=== PATIENT | male | born 1975 | race American Indian/Alaskan Native ===

== ENCOUNTER 2019-01-23 08:11 | Inpatient (IN) | payer SELFPAY ==
[2019-01-23] MEDS ORDERED: NORMODYNE IV ONE (08:47)
[2019-01-23 09:14] LABS: Basophils % (Auto) 0.3 % (0.0-1.8); Eosinophils # (Auto) 0.1 K/mm3 (0.0-0.4); Eosinophils % (Auto) 0.9 % (0.0-4.3); Hematocrit 44.8 % (35.5-45.6); Hemoglobin 15.5 gm/dl (11.8-15.2); Lymphocytes # (Auto) 1.8 K/mm3 (1.2-5.4); Lymphocytes % (Auto) 31.9 % (13.4-35.0); Mean Corpuscular HGB Conc 35 % (32-34); Mean Corpuscular Volume 86 fl (84-94); Monocytes # (Auto) 0.6 K/mm3 (0.0-0.8); Monocytes % (Auto) 10.6 % (0.0-7.3); Platelet Count 249 K/mm3 (140-440); Red Blood Count 5.19 M/mm3 (3.65-5.03); Red Cell Distribution Width 13.2 % (13.2-15.2)
--- NOTE | 2019-01-23 09:14 | Cat Scan Report ---
CT scan of head without IV contrast: History: Dizziness. Findings: Ventricles are normal in size and midline in location. No evidence of acute ischemia or hemorrhage. Focal area of low attenuation measuring 7 mm in diameter at viviana to the left of the midline. There is a large circumscribed area of low attenuation measuring 2 x 1.5 cm at left cerebellum. No extra-axial fluid collection. Normal sinuses. Impression: Chronic lacunar infarct viviana. Low attenuation left cerebellum may be chronic infarct or a mass. MRI scan recommended for further evaluation.
[2019-01-23 09:29] LABS: INR 0.97 (0.87-1.13)
--- NOTE | 2019-01-23 09:30 | Emergency Department Report ---
ED Dizziness HPI - General Chief Complaint: Dizziness Stated Complaint: DIZZY Time Seen by Provider: 01/23/19 08:36 Source: patient Mode of arrival: Ambulatory Limitations: No Limitations - History of Present Illness Initial Comments: Patient is a 44-year-old male with past medical history of noncompliant hypertension who is presenting with dizziness. Patient is having some mild difficulty pinpointing exactly when his symptoms started but between himself and his he states that he believes his symptoms started last week. 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 This was versed office just forgetfulness. Patient states that approximately 4 days ago while at work he did have some episodes of extreme dizziness where he had to go to his office to lie down. Patient states this occurred the next several days in a row. Patient states last night he felt a cold sensation in his nose shooting up into his head and his dizziness returned. Patient states that when he is walking and looking around he feels a spinning sensation that he also has been having sensation of his bodies leaning to the left. He denies any focal weakness of his arms and legs. Patient states he feels as though he is able to speak normally however again he did have some difficulty with some short-term memory. Patient denies any fevers chills. Patient is a social alcohol user and uses marijuana as well - Related Data Allergies Allergy/AdvReac Type Severity Reaction Status Date / Time No Known Allergies Allergy Verified 01/23/19 08:14 ED Review of Systems ROS: Stated complaint: DIZZY Other details as noted in HPI Comment: All other systems reviewed and negative ED Past Medical Hx - Past Medical History Previous Medical History?: No - Surgical History Past Surgical History?: No - Social History Smoking Status: Current Some Day Smoker Substance Use Type: Alcohol ED Physical Exam - General Limitations: No Limitations General appearance: alert, in no apparent distress - Head Head exam: Present: atraumatic, normocephalic - Eye Eye exam: Present: normal appearance, PERRL, EOMI - ENT ENT exam: Present: mucous membranes moist - Neck Neck exam: Present: normal inspection - Respiratory Respiratory exam: Present: normal lung sounds bilaterally. Absent: respiratory distress, wheezes, rales, rhonchi - Cardiovascular Cardiovascular Exam: Present: regular rate, normal rhythm. Absent: systolic murmur, diastolic murmur, rubs, gallop - GI/Abdominal GI/Abdominal exam: Present: soft, normal bowel sounds. Absent: distended, tenderness, guarding, rebound - Rectal Rectal exam: Present: deferred - Extremities Exam Extremities exam: Present: normal inspection - Back Exam Back exam: Present: normal inspection - Neurological Exam Neurological exam: Present: alert, oriented X3, CN II-XII intact. Absent: motor sensory deficit - Psychiatric Psychiatric exam: Present: normal affect, normal mood - Skin Skin exam: Present: warm, dry, intact, normal color. Absent: rash ED Course Vital Signs 01/23/19 01/23/19 01/23/19 08:14 08:28 09:20 Temperature 98.3 F Pulse Rate 83 78 Respiratory 16 20 Rate Blood Pressure 215/137 Blood Pressure 197/123 [Right] O2 Sat by Pulse 100 98 Oximetry 01/23/19 01/23/19 01/23/19 09:31 09:33 09:46 Temperature Pulse Rate 89 89 82 Respiratory 20 18 Rate Blood Pressure 171/118 Blood Pressure 171/118 192/130 [Right] O2 Sat by Pulse 98 97 Oximetry ED Medical Decision Making - Lab Data Result diagrams: 01/23/19 09:00 01/23/19 09:00 Lab Results 01/23/19 01/23/19 01/23/19 Range/Units 09:00 09:00 09:00 WBC 5.6 (4.5-11.0) K/mm3 RBC 5.19 H (3.65-5.03) M/mm3 Hgb 15.5 H (11.8-15.2) gm/dl Hct 44.8 (35.5-45.6) % MCV 86 (84-94) fl MCH 30 (28-32) pg MCHC 35 H (32-34) % RDW 13.2 (13.2-15.2) % Plt Count 249 (140-440) K/mm3 Lymph % (Auto) 31.9 (13.4-35.0) % [place] % (Auto) 10.6 H (0.0-7.3) % Eos % (Auto) 0.9 (0.0-4.3) % Baso % (Auto) 0.3 (0.0-1.8) % Lymph # 1.8 (1.2-5.4) K/mm3 [place] # 0.6 (0.0-0.8) K/mm3 Eos # 0.1 (0.0-0.4) K/mm3 Baso # 0.0 (0.0-0.1) K/mm3 Seg Neutrophils % 56.3 (40.0-70.0) % Seg Neutrophils # 3.1 (1.8-7.7) K/mm3 PT 13.5 (12.2-14.9) Sec. INR 0.97 (0.87-1.13) APTT 24.7 (24.2-36.6) Sec. Sodium (137-145) mmol/L Potassium (3.6-5.0) mmol/L Chloride (98-107) mmol/L Carbon Dioxide (22-30) mmol/L Anion Gap mmol/L BUN (9-20) mg/dL Creatinine (0.8-1.5) mg/dL Estimated GFR ml/min BUN/Creatinine Ratio % Glucose (75-100) mg/dL Calcium (8.4-10.2) mg/dL Troponin T < 0.010 (0.00-0.029) ng/mL Plasma/Serum Alcohol (0-0.07) % 01/23/19 01/23/19 Range/Units 09:00 09:00 WBC (4.5-11.0) K/mm3 RBC (3.65-5.03) M/mm3 Hgb (11.8-15.2) gm/dl Hct (35.5-45.6) % MCV (84-94) fl MCH (28-32) pg MCHC (32-34) % RDW (13.2-15.2) % Plt Count (140-440) K/mm3 Lymph % (Auto) (13.4-35.0) % [place] % (Auto) (0.0-7.3) % Eos % (Auto) (0.0-4.3) % Baso % (Auto) (0.0-1.8) % Lymph # (1.2-5.4) K/mm3 [place] # (0.0-0.8) K/mm3 Eos # (0.0-0.4) K/mm3 Baso # (0.0-0.1) K/mm3 Seg Neutrophils % (40.0-70.0) % Seg Neutrophils # (1.8-7.7) K/mm3 PT (12.2-14.9) Sec. INR (0.87-1.13) APTT (24.2-36.6) Sec. Sodium 138 (137-145) mmol/L Potassium 3.8 (3.6-5.0) mmol/L Chloride 100.5 (98-107) mmol/L Carbon Dioxide 28 (22-30) mmol/L Anion Gap 13 mmol/L BUN 10 (9-20) mg/dL Creatinine 0.9 (0.8-1.5) mg/dL Estimated GFR > 60 ml/min BUN/Creatinine Ratio 11 % Glucose 238 H (75-100) mg/dL Calcium 9.1 (8.4-10.2) mg/dL Troponin T (0.00-0.029) ng/mL Plasma/Serum Alcohol < 0.01 (0-0.07) % - Radiology Data [facility] [address] [place] [address] Cat Scan Report Signed Patient: MILKA OROZCO MR#: [id number] : 1975 Acct:[id number] Age/Sex: 44 / M ADM Date: 01/23/19 Loc: ED Attending Dr: Ordering Physician: JAVIER SYKES MD Date of Service: 01/23/19 Procedure(s): CT head/brain wo con Accession Number(s): [id number] cc: JAVIER SYKES MD CT scan of head without IV contrast: History: Dizziness. Findings: Ventricles are normal in size and midline in location. No evidence of acute ischemia or hemorrhage. Focal area of low attenuation measuring 7 mm in diameter at viviana to the left of the midline. There is a large circumscribed area of low attenuation measuring 2 x 1.5 cm at left cerebellum. No extra-axial fluid collection. Normal sinuses. Impression: Chronic lacunar infarct viviana. Low attenuation left cerebellum may be chronic infarct or a mass. MRI scan recommended for further evaluation. Transcribed By: PTP Dictated By: OMID ANAYA MD Electronically Authenticated By: OMID ANAYA MD Signed Date/Time: 01/23/1953 DD/ TD/TT: 01/23/19 0853 - Medical Decision Making Patient received labetalol for his hypertension which decreased blood pressure just slightly. Patient started with a DIDN'T diastolic blood pressure 137 decreased to 1:30. Systolic dropped by approximately 15 points. Patient started on a Cardene drip. Patient's CT is consistent with lacunar infarct that are chronic as well as a cerebellar lesion with some hypoattenuation's consistent also with chronic CVA. Patient is not a TPA candidate as time consideration of symptoms. Patient will be admitted to the hospitalists group for hypertensive emergency and hypertensive encephalopathy. Patient's admitted in serious condition. Critical Care Time: Yes (30) Critical care attestation.: If time is entered above; I have spent that time in minutes in the direct care of this critically ill patient, excluding procedure time. ED Disposition Clinical Impression: Hypertensive emergency, Hypertensive encephalopathy, CVA (cerebral vascular accident), Vertigo as late effect of stroke Disposition: DC-09 OP ADMIT IP TO THIS HOSP Is pt being admited?: Yes Condition: Serious Time of Disposition: 10:53 - Level of Consciousness 1a. Level of Consciousness: alert/keenly responsive - LOC Questions 1b. LOC Questions: answers both correctly - LOC Command 1c. LOC Commands: performs tasks correctly - Best Gaze 2. Best Gaze: normal - Visual 3. Visual: no visual loss - Facial Palsy 4. Facial Palsy: normal symmetrical movement - Motor Arm 5a. Motor Arm Left: no drift 5b. Motor Arm Right: no drift - Motor Leg 6a. Motor Leg Left: no drift 6b. Motor Leg Right: no drift - Limb Ataxia 7. Limb Ataxia: absent - Sensory 8. Sensory: normal - Best Language 9. Best Language: mild/moderate aphasia - Dysarthria 10. Dysarthria: normal - Extinction and Inattention 11. Extinction/Inattention: no abnormality - Scoring Total Score: 1 Stroke Severity: Minor Stroke
[2019-01-23 09:34] LABS: Partial Thromboplastin Time 24.7 Sec. (24.2-36.6)
[2019-01-23 09:37] LABS: BUN/Creatinine Ratio 11; Blood Urea Nitrogen 10 mg/dL (9-20); Calcium 9.1 mg/dL (8.4-10.2); Hemolysis Index 5
[2019-01-23] MEDS ORDERED: ASPIRIN PO ONE (09:57)
[2019-01-23] MEDS ORDERED: CARDENE 50 MG in NACL 0.9% 250ML 230 ML IV SCH (10:00)
--- NOTE | 2019-01-23 11:41 | Cat Scan Report ---
PROCEDURE: CT ANGIO HEAD TECHNIQUE: CTA of the head was performed after the administration of intravenous contrast. Coronal a nd sagittal reconstructions were included. Rotating MIPS were included. HISTORY: stroke sx COMPARISONS: None. FINDINGS: No evidence of intracranial mass, mass effect, midline shift or evidence of acute ischemic infarct. T here is a right maxillary sinus mucus retention cyst. The ventricles are nondilated. The mastoid air cells are clear. The calvarium is intact. No evidence of intracranial aneurysm, dissection or occlusion. Note that the right A1 segment is hypo plastic and the right anterior cerebral artery is fed by the left A1 segment and the anterior communi cating artery. The posterior communicating arteries are either very small or absent. No evidence of i ntracranial vessel stenosis. There is a tiny amount of calcified atherosclerotic plaque within the le ft cavernous internal carotid artery causing no significant vessel stenosis. IMPRESSION: 1. No acute intracranial abnormality. No intracranial aneurysm, vessel occlusion or significant steno sis. 2. Hypoplastic right A1 segment. This document is electronically signed by Chela Kennedy., January 23 2019 11:40:01 AM ET
[2019-01-23 12:29] LABS: Amphetamine Screen,Urine PRESUMPTIVE NEGATIVE; Benzodiazepines Screen,Urine PRESUMPTIVE NEGATIVE; Cocaine Screen,Urine PRESUMPTIVE NEGATIVE; Methadone Screen,Urine PRESUMPTIVE NEGATIVE; Opiate Screen,Urine PRESUMPTIVE NEGATIVE
--- NOTE | 2019-01-23 12:32 | Cat Scan Report ---
PROCEDURE: CT ANGIO NECK TECHNIQUE: CT angiography of the neck was performed. Axial images and coronal and sagittal reformatt ed and MIP reformatted images were obtained. HISTORY: stroke sx COMPARISON: None FINDINGS: Carotid arteries are patent without evidence for stenosis or dissection. Vertebral arteries are patent without stenosis or dissection. IMPRESSION: There is no significant abnormality identified. This document is electronically signed by Patricia Treviño MD., January 23 2019 12:30:36 PM ET
[2019-01-23 13:13] LABS: Cannabinoid Screen,Urine PRESUMPTIVE POSITIVE
[2019-01-23] MEDS ORDERED: TORADOL IV ONE (13:56)
[2019-01-23] MEDS ORDERED: ZOFRAN IV ONE (13:58)
[2019-01-23] MEDS ORDERED: TORADOL ONE (14:00)
[2019-01-23] MEDS ORDERED: ZOFRAN ONE (14:07)
--- NOTE | 2019-01-23 17:56 | History and Physical Report ---
History of Present Illness Date of examination: 01/23/19 Chief complaint: Very pleasant 44-year-old -[place] male patient with significant past medical history of hypertension noncompliant with medications presented to the emergency room with dizziness unsteady gait vague neuro symptoms unable to explain for the last 5 days Patient also reports that he has some forgetfulness, and leaning towards left side. Patient has similar episodes during work today and he rested for a while. Patient also complains of some vertigo or room spinning sensations and body leaning towards left. No speech problems no loss of consciousness, no history of seizures Patient denied history of CVA or TIA in the past Patient has history of hypertension for about 3-4 years , not on any medications I'm on my evaluation patient feels better Past History Past Medical History: hypertension Past Surgical History: denies: No surgical history Social history: lives with family, full code, other (marijuana ). denies: smoking, alcohol abuse, prescription drug abuse Family history: hypertension Medications and Allergies Allergies Allergy/AdvReac Type Severity Reaction Status Date / Time No Known Allergies Allergy Verified 01/23/19 08:14 Active Meds: Active Medications Nicardipine HCl 50 mg/ Sodium (Chloride) 250 mls @ 25 mls/hr IV TITR CUCO; Protocol Last Titration: 01/23/19 13:51 Dose: 0 mg/hr, 0 mls/hr Documented by: Review of Systems Constitutional: weakness, no weight loss, no weight gain Ears, nose, mouth and throat: no nasal congestion, no nasal discharge Cardiovascular: lightheadedness, no chest pain, no palpitations, no shortness of breath Respiratory: no cough, no shortness of breath Gastrointestinal: no abdominal pain, no nausea, no vomiting Genitourinary Male: no dysuria, no hematuria Musculoskeletal: no myalgias, no arthritis Integumentary: no rash, no lesions Neurological: no numbness, no tingling, no ataxia, no memory loss, no gait dysfunction Psychiatric: no anxiety, no depression Endocrine: no cold intolerance, no heat intolerance, no polydipsia, no polyuria Hematologic/Lymphatic: no easy bruising, no easy bleeding Allergic/Immunologic: no urticaria, no allergic rhinitis Exam - Constitutional Vitals: Temp Pulse Resp BP Pulse Ox 98.3 F 82 18 142/89 95 01/23/19 08:28 01/23/19 09:46 01/23/19 11:30 01/23/19 17:27 01/23/19 17:27 General appearance: Present: no acute distress, well-nourished - EENT Eyes: Present: PERRL, EOM intact - Neck Neck: Present: supple, normal ROM - Respiratory Respiratory effort: normal Respiratory: bilateral: diminished, negative: rales, rhonchi, wheezing - Cardiovascular Rhythm: regular Heart Sounds: Present: S1 & S2 - Extremities Extremities: no ischemia, No edema - Abdominal General gastrointestinal: Present: soft, non-tender, non-distended, normal bowel sounds - Integumentary Integumentary: Present: clear, warm - Musculoskeletal Musculoskeletal: strength equal bilaterally, other (unsteady gait) - Psychiatric Psychiatric: appropriate mood/affect, cooperative - Neurologic Neurologic: moves all extremities, other (unsteady gait) Results - Labs CBC & Chem 7: 01/23/19 09:00 01/23/19 09:00 Labs: Abnormal lab results 01/23/19 01/23/19 Range/Units 09:00 09:00 RBC 5.19 H (3.65-5.03) M/mm3 Hgb 15.5 H (11.8-15.2) gm/dl MCHC 35 H (32-34) % [place] % (Auto) 10.6 H (0.0-7.3) % Glucose 238 H (75-100) mg/dL Assessment and Plan --Hypertensive emergency; on Cardene drip Titrate systolic blood pressures to less than 160 Hydralazine, metoprolol, lisinopril, when necessary hydralazine --Hypertensive encephalopathy; Supportive care, Dizziness/unsteadiness gait Optimal control of blood pressures, fall precautions Neuro workup --Possible CVA/TIA; Not a candidate for TPA, aspirin, statin, Lipid profile MRI MRA, echocardiogram, carotid Doppler, neurology consult Physical therapy occupational therapy speech therapy CT angiogram of the head; no acute abnormality CTA neck; no acute abnormality CT head; chronic lacunar infarcts in [place] Low attenuation left possible and may be chronic infarct or mass Advised MRI --Medical noncompliance; counseling done patient advised to comply with medications, Follow-up visits --DVT prophylaxis; Lovenox Closely monitor the patient and adjust the management as needed Plan of care reviewed with the patient and his mother at the bedside
[2019-01-23] MEDS ORDERED: AMBIEN PO PRN (19:15)
[2019-01-23] MEDS ORDERED: ZOFRAN IV PRN (19:15)
[2019-01-23] MEDS ORDERED: COLACE PO PRN (19:15)
[2019-01-23] MEDS ORDERED: ALUM-MAG HYDROX-SIMETH 200-200-20MG/5ML PO PRN (21:46)
[2019-01-23] MEDS: APRESOLINE PO SCH (21:58)
[2019-01-23] MEDS: LOVENOX SUB-Q SCH (21:58)
[2019-01-23] MEDS: LOPRESSOR PO SCH (21:58)
[2019-01-23] MEDS: NORCO 5/325 PO PRN (22:59)
[2019-01-24 04:35] LABS: Alanine Aminotransferase 48 units/L (7-56); Albumin 1.8 g/dL (3.9-5); BUN/Creatinine Ratio 16; Blood Urea Nitrogen 14 mg/dL (9-20); Calcium 7.1 mg/dL (8.4-10.2); Chol/HDL Ratio 4.25 %; HDL Cholesterol 20 mg/dL (40-59); Hemolysis Index 1; LDL Cholesterol,Direct 45 mg/dL (50-130)
[2019-01-24 04:46] LABS: Hematocrit TNR % (35.5-45.6); Hemoglobin TNR gm/dl (11.8-15.2); Mean Corpuscular HGB Conc TNR % (32-34); Mean Corpuscular Volume TNR fl (84-94); Platelet Count TNR K/mm3 (140-440); Red Blood Count TNR M/mm3 (3.65-5.03); Red Cell Distribution Width TNR % (13.2-15.2)
[2019-01-24 04:47] LABS: Erythrocyte Sedimentation Rate TNR mm/Hr (0-20)
[2019-01-24] MEDS: APRESOLINE PO SCH ×4 (04:50→21:30)
[2019-01-24] MEDS: NORCO 5/325 PO PRN (04:50)
[2019-01-24 05:34] LABS: Basophils # (Auto) 0.1 K/mm3 (0.0-0.1); Basophils % (Auto) 1.5 % (0.0-1.8); Eosinophils # (Auto) 0.1 K/mm3 (0.0-0.4); Eosinophils % (Auto) 1.3 % (0.0-4.3); Hemoglobin 15.6 gm/dl (11.8-15.2); Lymphocytes # (Auto) 2.4 K/mm3 (1.2-5.4); Lymphocytes % (Auto) 38.7 % (13.4-35.0); Mean Corpuscular HGB Conc 35 % (32-34); Mean Corpuscular Volume 85 fl (84-94); Monocytes # (Auto) 0.7 K/mm3 (0.0-0.8); Monocytes % (Auto) 11.8 % (0.0-7.3); Platelet Count 244 K/mm3 (140-440); Red Blood Count 5.28 M/mm3 (3.65-5.03); Red Cell Distribution Width 13.1 % (13.2-15.2)
[2019-01-24] MEDS: APRESOLINE IV PRN ×2 (05:48→16:38)
[2019-01-24 06:14] LABS: Erythrocyte Sedimentation Rate 3 mm/Hr (0-20)
--- NOTE | 2019-01-24 07:16 | Event Note ---
Date: 01/24/19 CIDE MET Patient complained of face feeling flushed Also complaining of right leg pain which is chronic from his sciatica As reviewed, repeat labs, add magnesium Vitals: Blood pressure trended down, glucose normal, EKG normal
[2019-01-24] MEDS: TYLENOL PO PRN ×2 (07:21→18:54)
[2019-01-24 07:36] LABS: BUN/Creatinine Ratio 14; Blood Urea Nitrogen 13 mg/dL (9-20); Calcium 9.1 mg/dL (8.4-10.2); Hemolysis Index 7
--- NOTE | 2019-01-24 11:09 | Magnetic Resonance Report ---
MRA HEAD WITHOUT CONTRAST INDICATION: CVR/TIA. COMPARISON: Yesterday's CTA. FINDINGS: MRA of the head performed without intravenous contrast and demonstrates no evidence of flow-limiting stenosis, occlusion or vascular malformation. Please note that detection of aneurysms less than 5 mm is limited on this exam. Hypoplastic A1 segment again noted. Tortuous right vertebral artery crossing over to the left also again seen, joining with the right to form a patent basilar artery. CONCLUSION: Normal study of the [place] of [place] with few incidental findings, as above. Thank you for the opportunity to participate in this patient's care.
--- NOTE | 2019-01-24 11:10 | Magnetic Resonance Report ---
MRI BRAIN WITHOUT CONTRAST INDICATION: CVR/TIA COMPARISON: Yesterday's head CT. FINDINGS: Noncontrast multiplanar and multisequence MRI of the brain demonstrates left cerebellar acute infarcts, the largest confluent approximately 2.5 x 1.2 cm with numerous smaller peripheral/adjacent foci of acute restricted diffusion as on axial series 4, images 6-10. No other definite acute infarct, hemorrhage, mass effect or midline shift. Normal major intracranial vascular flow voids. Approximately 0.4 cm old lacunar infarct in the viviana incidentally seen on the left, axial image 10, series 6. Normal ventricles and sulci. Mild periventricular white matter FLAIR and T2 weighted hyperintensities. Preserved basilar cisterns with symmetric seventh and eighth nerve complexes. Normal imaged eye globes, allowing for the motion artifact. Mild right ethmoid sinus mucosal thickening anteriorly. Clear remainder imaged paranasal sinuses and mastoid air cells. Normal midline structures without evidence of Chiari malformation. CONCLUSION: Left cerebellar acute infarctions noted in this patient with microvascular changes and few other findings, as described. Thank you for the opportunity to participate in this patient's care.
--- NOTE | 2019-01-24 13:16 | Progress Note ---
Assessment and Plan Assessment and plan: --Acute cerebellar stroke; on MRI Fall precautions, patient has unsteady gait Aspirin, statin, physical therapy occupational therapy f/u Neurology evaluation and recommendations Discussed with [neurologist] recommend Follow-up CT today and tomorrow to rule out cerebral edema [ reports that cerebellar infarcts are prone to Developed cerebral edema] --Hypertensive emergency; s/p Cardene drip The patient is moderate control, permissive hypertension Hydralazine, metoprolol, lisinopril, when necessary hydralazine --Hypertensive encephalopathy; Supportive care,Optimal control of blood pressures, fall precautions, Neuro workup --Acute cerebral artery infarct; Not a candidate for TPA, as patient had symptoms more than 5 days Follow neuro w/u CT angiogram of the head; no acute abnormality CTA neck; no acute abnormality CT head; chronic lacunar infarcts in [place] Low attenuation left possible and may be chronic infarct or mass MRI/MRA/ carotid Doppler/echocardiogram/ --Medical noncompliance; counseling done patient advised to comply with medications, Follow-up visits --DVT prophylaxis; Lovenox Closely monitor the patient and adjust the management as needed Plan of care reviewed with the patient and his mother at the bedside History Interval history: Patient seen and examined medical records reviewed, patient's mother at the bedside Consistent with acute left cerebral large infarction Patient feels slightly better, complaints of dizziness and mild headache Blood pressures moderate control Alert awake oriented 3 Vital signs noted Hospitalist Physical - Constitutional Vitals: Temp Pulse Resp BP Pulse Ox 98.6 F 94 H 18 155/104 99 01/24/19 06:41 01/24/19 06:41 01/24/19 06:41 01/24/19 06:41 01/24/19 06:41 General appearance: Present: no acute distress, well-nourished - EENT Eyes: Present: PERRL, EOM intact - Neck Neck: Present: supple, normal ROM - Respiratory Respiratory effort: normal Respiratory: negative: rales, rhonchi, wheezing - Cardiovascular Rhythm: regular Heart Sounds: Present: S1 & S2 - Extremities Extremities: no ischemia, No edema - Abdominal General gastrointestinal: soft, non-tender, non-distended, normal bowel sounds - Integumentary Integumentary: Present: clear, warm - Psychiatric Psychiatric: appropriate mood/affect, cooperative - Neurologic Neurologic: moves all extremities Results - Labs CBC & Chem 7: 01/24/19 05:02 01/24/19 07:05 Labs: Laboratory Last Values WBC 6.1 K/mm3 (4.5-11.0) 01/24/19 05:02 RBC 5.28 M/mm3 (3.65-5.03) H 01/24/19 05:02 Hgb 15.6 gm/dl (11.8-15.2) H 01/24/19 05:02 Hct 45.0 % (35.5-45.6) 01/24/19 05:02 MCV 85 fl (84-94) 01/24/19 05:02 MCH 30 pg (28-32) 01/24/19 05:02 MCHC 35 % (32-34) H 01/24/19 05:02 RDW 13.1 % (13.2-15.2) L 01/24/19 05:02 Plt Count 244 K/mm3 (140-440) 01/24/19 05:02 Lymph % (Auto) 38.7 % (13.4-35.0) H 01/24/19 05:02 [place] % (Auto) 11.8 % (0.0-7.3) H 01/24/19 05:02 Eos % (Auto) 1.3 % (0.0-4.3) 01/24/19 05:02 Baso % (Auto) 1.5 % (0.0-1.8) 01/24/19 05:02 Lymph # 2.4 K/mm3 (1.2-5.4) 01/24/19 05:02 [place] # 0.7 K/mm3 (0.0-0.8) 01/24/19 05:02 Eos # 0.1 K/mm3 (0.0-0.4) 01/24/19 05:02 Baso # 0.1 K/mm3 (0.0-0.1) 01/24/19 05:02 Seg Neutrophils % 46.7 % (40.0-70.0) 01/24/19 05:02 Seg Neutrophils # 2.9 K/mm3 (1.8-7.7) 01/24/19 05:02 ESR 3 mm/Hr (0-20) 01/24/19 05:02 PT 13.5 Sec. (12.2-14.9) 01/23/19 09:00 INR 0.97 (0.87-1.13) 01/23/19 09:00 APTT 24.7 Sec. (24.2-36.6) 01/23/19 09:00 Sodium 139 mmol/L (137-145) D 01/24/19 07:05 Potassium 3.9 mmol/L (3.6-5.0) 01/24/19 07:05 Chloride 105.1 mmol/L (98-107) 01/24/19 07:05 Carbon Dioxide 22 mmol/L (22-30) 01/24/19 07:05 Anion Gap 16 mmol/L 01/24/19 07:05 BUN 13 mg/dL (9-20) 01/24/19 07:05 Creatinine 0.9 mg/dL (0.8-1.5) 01/24/19 07:05 Estimated GFR > 60 ml/min 01/24/19 07:05 BUN/Creatinine Ratio 14 % 01/24/19 07:05 Glucose 200 mg/dL (75-100) H 01/24/19 07:05 POC Glucose 164 (70-105) H 01/24/19 06:56 Hemoglobin A1c 8.5 % (4-6) H 01/24/19 05:02 Calcium 9.1 mg/dL (8.4-10.2) D 01/24/19 07:05 Magnesium 1.90 mg/dL (1.7-2.3) 01/24/19 07:05 Total Bilirubin 0.70 mg/dL (0.1-1.2) 01/24/19 04:08 AST 41 units/L (5-40) H 01/24/19 04:08 ALT 48 units/L (7-56) 01/24/19 04:08 Alkaline Phosphatase 76 units/L (35-129) 01/24/19 04:08 Troponin T < 0.010 ng/mL (0.00-0.029) 01/23/19 09:00 Total Protein 5.3 g/dL (6.3-8.2) L 01/24/19 04:08 Albumin 1.8 g/dL (3.9-5) L 01/24/19 04:08 Albumin/Globulin Ratio 0.5 % 01/24/19 04:08 Triglycerides 97 mg/dL (2-149) 01/24/19 04:08 Cholesterol 85 mg/dL (50-199) 01/24/19 04:08 LDL Cholesterol Direct 45 mg/dL (50-130) L 01/24/19 04:08 HDL Cholesterol 20 mg/dL (40-59) L 01/24/19 04:08 Cholesterol/HDL Ratio 4.25 % 01/24/19 04:08 Urine Opiates Screen Presumptive negative 01/23/19 Unknown Urine Methadone Screen Presumptive negative 01/23/19 Unknown Ur Barbiturates Screen Presumptive negative 01/23/19 Unknown Ur Phencyclidine Scrn Presumptive negative 01/23/19 Unknown Ur Amphetamines Screen Presumptive negative 01/23/19 Unknown U Benzodiazepines Scrn Presumptive negative 01/23/19 Unknown Urine Cocaine Screen Presumptive negative 01/23/19 Unknown U Marijuana (THC) Screen Presumptive positive 01/23/19 Unknown Drugs of Abuse Note Disclamer 01/23/19 Unknown Plasma/Serum Alcohol < 0.01 % (0-0.07) 01/23/19 09:00 Active Medications - Current Medications Current Medications: Generic Name Dose Route Start Last Admin Trade Name Freq PRN Reason Stop Dose Admin Acetaminophen 650 mg 01/23/19 22:13 01/24/19 07:21 Tylenol PO 650 mg Q6H PRN Administration Non Cardiac Pain or Temp>100.5 Acetaminophen/Hydrocodone Bitart 1 each 01/23/19 22:14 01/24/19 04:50 [place] 5/325 PO 1 each Q6H PRN Administration Pain, Moderate (4-6) Al Hydrox/Mg Hydrox/Simethicone 30 ml 01/23/19 21:46 01/23/19 21:56 Alum-Mag Hydrox-Simeth [phone]/5ml PO 30 ml Q4H PRN Administration Indigestion Atorvastatin Calcium 40 mg 01/23/19 22:00 01/23/19 21:58 Lipitor PO 40 mg QHS [facility]CO Administration Docusate Sodium 100 mg 01/23/19 19:15 Colace PO BID PRN Constipation Enoxaparin Sodium 40 mg 01/23/19 22:00 01/23/19 21:58 Lovenox SUB-Q 40 mg QDAY@2200 CUCO Administration Hydralazine HCl 25 mg 01/23/19 22:00 01/24/19 06:03 Apresoline PO Not Given Q8HR CUCO Hydralazine HCl 10 mg 01/23/19 19:04 01/24/19 05:48 Apresoline IV 10 mg Q4HR PRN Administration Hypertension Nicardipine HCl 50 mg/ Sodium 250 mls @ 25 mls/hr 01/23/19 10:00 01/23/19 19:01 Chloride IV 0 mg/hr TITR CUCO 0 mls/hr Titration Protocol 5 MG/HR Metoprolol Tartrate 25 mg 01/23/19 22:00 01/23/19 21:58 Lopressor PO 25 mg BID CUCO Administration Ondansetron HCl 4 mg 01/23/19 19:15 01/24/19 07:00 Zofran IV 4 mg Q4H PRN Administration Nausea And Vomiting Pantoprazole Sodium 40 mg 01/24/19 10:00 Protonix PO QDAY CUCO Zolpidem Tartrate 5 mg 01/23/19 19:15 Ambien PO QHS PRN Sleep
--- NOTE | 2019-01-24 13:23 | Consultation ---
History of Present Illness Consult date: 01/24/19 Requesting physician: AMNA SAL Reason for Consult: Cerebellar stroke History of present illness: 44 year old male with history of hypertension, not on meds, presents with history of vertigo and leaning to the left when walking. He also experienced nausea. These spells have been coming and going for 4 days. Finally came to ER 01/23/19 where BP was seen to be [address] and MRI confirm stroke in left cerebellar hemisphere. He denies weakness or numbness, no vision changes and able to swallow. No previous spells such as this. On no meds at home. This a.m. he awakened with headache. Dizziness does not occur if he is lying down. Past History Past Medical History: hypertension Past Surgical History: denies: No surgical history Social history: lives with family, full code, other (marijuana ). denies: smoki ng, alcohol abuse, prescription drug abuse Family history: hypertension Medications and Allergies Allergies Allergy/AdvReac Type Severity Reaction Status Date / Time No Known Allergies Allergy Verified 01/23/19 08:14 Home Medications Medication Instructions Recorded Confirmed Last Taken Type No Known Home Medications [No 01/23/19 01/23/19 Unknown History Reported Home Medications] Active Meds: Active Medications Acetaminophen (Tylenol) 650 mg PO Q6H PRN PRN Reason: Non Cardiac Pain or Temp>100.5 Last Admin: 01/24/19 07:21 Dose: 650 mg Documented by: Acetaminophen/Hydrocodone Bitart ([place] 5/325) 1 each PO Q6H PRN PRN Reason: Pain, Moderate (4-6) Last Admin: 01/24/19 04:50 Dose: 1 each Documented by: Al Hydrox/Mg Hydrox/Simethicone (Alum-Mag Hydrox-Simeth [phone]/5ml) 30 ml PO Q4H PRN PRN Reason: Indigestion Last Admin: 01/23/19 21:56 Dose: 30 ml Documented by: Atorvastatin Calcium (Lipitor) 40 mg PO QHS [facility] Last Admin: 01/23/19 21:58 Dose: 40 mg Documented by: Docusate Sodium (Colace) 100 mg PO BID PRN PRN Reason: Constipation Enoxaparin Sodium (Lovenox) 40 mg SUB-Q QDAY@2200 [facility] Last Admin: 01/23/19 21:58 Dose: 40 mg Documented by: Hydralazine HCl (Apresoline) 25 mg PO Q8HR [facility]CO Last Admin: 01/24/19 06:03 Dose: Not Given Documented by: Hydralazine HCl (Apresoline) 10 mg IV Q4HR PRN PRN Reason: Hypertension Last Admin: 01/24/19 05:48 Dose: 10 mg Documented by: Nicardipine HCl 50 mg/ Sodium (Chloride) 250 mls @ 25 mls/hr IV TITR CUCO; Protocol Last Titration: 01/23/19 19:01 Dose: 0 mg/hr, 0 mls/hr Documented by: Metoprolol Tartrate (Lopressor) 25 mg PO BID [facility] Last Admin: 01/23/19 21:58 Dose: 25 mg Documented by: Ondansetron HCl (Zofran) 4 mg IV Q4H PRN PRN Reason: Nausea And Vomiting Last Admin: 01/24/19 07:00 Dose: 4 mg Documented by: Pantoprazole Sodium (Protonix) 40 mg PO QDAY [facility] Zolpidem Tartrate (Ambien) 5 mg PO QHS PRN PRN Reason: Sleep Physical Examination - Vital Signs Vital Signs: Vital Signs Pulse Resp BP Pulse Ox 83 16 215/137 100 01/23/19 08:14 01/23/19 08:14 01/23/19 08:14 01/23/19 08:14 - Physical Exam Narrative exam: General - Resting in bed. Neurological exam - Speech fluent. Oriented plate cutter - Intact EOMs no nystagmus, Face symmetric, tongue midline. V-1 thru V-3 intact bilaterally. Hearing intact. Motor - 5/5 throughout. Reflexes - +2 on left, trace on right. Sensory - intact to touch and pin. Cerebellar - [place], FTN and FFM intact. HKS OK. a little wobbly on left. Results - Laboratory Findings CBC and BMP: 01/24/19 05:02 01/24/19 07:05 Abnormal Lab Findings: Abnormal Labs 01/23/19 01/23/19 01/24/19 09:00 09:00 04:08 RBC 5.19 H Hgb 15.5 H MCHC 35 H RDW Lymph % (Auto) [place] % (Auto) 10.6 H Sodium 132 L Carbon Dioxide 21 L D Glucose 238 H POC Glucose Hemoglobin A1c Calcium 7.1 L D AST 41 H Total Protein 5.3 L Albumin 1.8 L LDL Cholesterol Direct 45 L HDL Cholesterol 20 L 01/24/19 01/24/19 01/24/19 05:02 05:02 06:56 RBC 5.28 H Hgb 15.6 H MCHC 35 H RDW 13.1 L Lymph % (Auto) 38.7 H [place] % (Auto) 11.8 H Sodium Carbon Dioxide Glucose POC Glucose 164 H Hemoglobin A1c 8.5 H Calcium AST Total Protein Albumin LDL Cholesterol Direct HDL Cholesterol 01/24/19 07:05 RBC Hgb MCHC RDW Lymph % (Auto) [place] % (Auto) Sodium Carbon Dioxide Glucose 200 H POC Glucose Hemoglobin A1c Calcium AST Total Protein Albumin LDL Cholesterol Direct HDL Cholesterol Assessment and Plan 44 year old with uncontrolled hypertension presented with hx of dizzy spells, nausea and leaning/falling to the left over the past few days. MRI reveals left cerebellsr infarct, and chronic left lacunar infarct, viviana. He is now experiencing headache. Plan - Will send down for CT to evaluate for edema. If present, may need transfer to [facility] for neurosurgical observation.
[2019-01-24] MEDS: LOPRESSOR PO SCH ×2 (14:37→21:29)
[2019-01-24] MEDS: PROTONIX PO SCH (14:38)
[2019-01-24] MEDS: CLARITIN-D 24HR PO SCH (17:42)
[2019-01-24] MEDS ORDERED: APRESOLINE IV ONE (18:21)
[2019-01-24] MEDS: LOVENOX SUB-Q SCH (21:31)
[2019-01-25] MEDS: APRESOLINE PO SCH ×5 (05:10→22:56)
[2019-01-25] MEDS: TYLENOL PO PRN ×2 (05:12→13:40)
[2019-01-25] MEDS: LOPRESSOR PO SCH ×2 (10:35→22:57)
[2019-01-25] MEDS: PROTONIX PO SCH (10:35)
[2019-01-25] MEDS: CLARITIN-D 24HR PO SCH (10:44)
--- NOTE | 2019-01-25 11:00 | Cat Scan Report ---
EXAM: CT HEAD/BRAIN WO CON HISTORY: f/u Cerebellar CVA to r/o edema[rec by ] TECHNIQUE: Spiral axial CT images are obtained through the brain without the administration of intra venous contrast. COMPARISON: None available. FINDINGS: There is an approximately 3.3 cm x 2.9 cm focal lucency in the left inferior cerebellum in keeping wi th an acute or subacute infarction. There is severe atherosclerotic disease of the distal vertebral a rteries, the level of the skull base, marked by calcified mural plaques. The centrum semiovale, basal ganglia, cerebellum, and brainstem are otherwise grossly unremarkable fo r a noncontrast CT scan. There is no acute intracranial hemorrhage, discernible acute infarction, mass lesion, midline shift, or hydrocephalus seen. No extra-axial mass or abnormal fluid collection is seen. The calvarium is intact. The partially imaged paranasal sinuses, middle ear cavities, and mastoid ai r cells are clear. IMPRESSION: 1. Approximately 3.3 cm x 2.9 cm focal lucency in the left inferior cerebellum in keeping with an a cute or subacute infarction. 2. Severe atherosclerotic disease of the distal vertebral arteries, the level of the skull base, ma rked by calcified mural plaques. 3. No intracranial hemorrhage, mass lesions, midline shift, mass effect or hydrocephalus seen. This document is electronically signed by Lana Askew MD., January 25 2019 10:58:28 AM ET
--- NOTE | 2019-01-25 11:05 | Vascular Lab Report ---
EXAM: VL CAROTID DUPLEX BILAT HISTORY: CVA/TIA TECHNIQUE: The carotid arteries and vertebral arteries were interrogated with a high-frequency linear transducer, employing grayscale imaging, duplex Doppler and color flow Doppler imaging. COMPARISON: None available. FINDINGS: The common carotid arteries and carotid bulbs appear widely patent on grayscale imaging. There is mil d atherosclerotic mural plaque formation in the carotid bulbs, without significant luminal encroachme nt seen. Carotid velocities are as follows: RIGHT LEFT Distal CCA: 86 cm/s 84 cm/s Proximal ICA: 66 cm/s 71 cm/s ICA/CCA ratio: 0.77 0.85 The above findings constitute less than 50%; no hemodynamically significant ICA origin stenosis. There is no hemodynamically significant ECA stenosis. Both vertebral arteries are patent and demonstrate antegrade blood flow and normal Doppler waveforms. IMPRESSION: 1. Mild atherosclerotic plaque seen in the carotid bifurcations, without significant luminal encroac hment. 2. No hemodynamically significant ICA or ECA stenosis. 3. Patent vertebral arteries with antegrade blood flow. This document is electronically signed by Lana Askew MD., January 25 2019 11:03:55 AM ET
--- NOTE | 2019-01-25 12:56 | Progress Note ---
Assessment and Plan Assessment and plan: --Hypertensive emergency; s/p Cardene drip The patient is moderate control, permissive hypertension Hydralazine, metoprolol, lisinopril, when necessary hydralazine --Acute cerebellar stroke; on MRI Fall precautions, patient has unsteady gait Aspirin, statin, physical therapy occupational therapy f/u Neurology evaluation and recommendations Discussed with [neurologist] recommend Follow-up CT today and tomorrow to rule out cerebral edema [ reports that cerebellar infarcts are prone to Developed cerebral edema] --Hypertensive encephalopathy; Supportive care,Optimal control of blood pressures, fall precautions, Neuro workup --Acute cerebral artery infarct; Not a candidate for TPA, as patient had symptoms more than 5 days Follow neuro w/u CT angiogram of the head; no acute abnormality CTA neck; no acute abnormality CT head; chronic lacunar infarcts in [place] Low attenuation left possible and may be chronic infarct or mass MRI; left cerebellar acute infarctions noted in this patient with microvascular changes and few other findings as mentioned in the detailed report MRA;MRA; normal study of [place] with few incidental findings mentioned in the detailed report Echocardiogram; ejection fraction 35-40%, No shunt, impaired diastolic filling Carotid Doppler; no hemodynamically significant stenosis mild atherosclerotic plaque in the cardiac bifurcations Follow-up CT head; ; Approximately 3.3 cm 2.9 cm focal lucency in the left inferior cerebellum keeping with an acute or subacute infarction Severe atherosclerotic disease distal vertebral arteries level of skull base, marked calcified mural plaques No intracranial hemorrhage mass lesion midline shift mass effect on hydrocortisone as well as seen -Hyperglycemia; patient denies history of diabetes mellitus, HbA1c > 8 Accu-Chek sliding scale coverage and ADA diet, start oral hypoglycemics/insulin as needed Diabetic Education and nutrition consult, --Severe malnutrition /Hypoalbuminemia ; nutrition supplements, nutrition consult --Medical noncompliance; counseling done patient advised to comply with medications, Follow-up visits --DVT prophylaxis; Lovenox Closely monitor the patient and adjust the management as needed Plan of care reviewed with the patient and his mother at the bedside Also discussed with his nurse History Interval history: Patient seen and examined medical records reviewed Patient feels slightly better no new complaints Alert awake oriented 3, mild dizziness Blood pressures moderate control Vital signs noted Hospitalist Physical - Constitutional Vitals: Temp Pulse Resp BP Pulse Ox 98.3 F 83 20 162/102 96 01/25/19 09:07 01/25/19 10:50 01/25/19 09:07 01/25/19 10:50 01/25/19 09:07 General appearance: Present: no acute distress, well-nourished - EENT Eyes: Present: PERRL, EOM intact - Neck Neck: Present: supple, normal ROM - Respiratory Respiratory effort: normal Respiratory: bilateral: diminished, negative: rales, rhonchi, wheezing - Cardiovascular Rhythm: regular Heart Sounds: Present: S1 & S2 - Extremities Extremities: no ischemia, No edema - Abdominal General gastrointestinal: soft, non-tender, non-distended, normal bowel sounds - Integumentary Integumentary: Present: clear, warm - Psychiatric Psychiatric: appropriate mood/affect, cooperative - Neurologic Neurologic: moves all extremities (unsteady gait) Results - Labs CBC & Chem 7: 01/24/19 05:02 01/24/19 07:05 Labs: Laboratory Last Values WBC 6.1 K/mm3 (4.5-11.0) 01/24/19 05:02 RBC 5.28 M/mm3 (3.65-5.03) H 01/24/19 05:02 Hgb 15.6 gm/dl (11.8-15.2) H 01/24/19 05:02 Hct 45.0 % (35.5-45.6) 01/24/19 05:02 MCV 85 fl (84-94) 01/24/19 05:02 MCH 30 pg (28-32) 01/24/19 05:02 MCHC 35 % (32-34) H 01/24/19 05:02 RDW 13.1 % (13.2-15.2) L 01/24/19 05:02 Plt Count 244 K/mm3 (140-440) 01/24/19 05:02 Lymph % (Auto) 38.7 % (13.4-35.0) H 01/24/19 05:02 [place] % (Auto) 11.8 % (0.0-7.3) H 01/24/19 05:02 Eos % (Auto) 1.3 % (0.0-4.3) 01/24/19 05:02 Baso % (Auto) 1.5 % (0.0-1.8) 01/24/19 05:02 Lymph # 2.4 K/mm3 (1.2-5.4) 01/24/19 05:02 [place] # 0.7 K/mm3 (0.0-0.8) 01/24/19 05:02 Eos # 0.1 K/mm3 (0.0-0.4) 01/24/19 05:02 Baso # 0.1 K/mm3 (0.0-0.1) 01/24/19 05:02 Seg Neutrophils % 46.7 % (40.0-70.0) 01/24/19 05:02 Seg Neutrophils # 2.9 K/mm3 (1.8-7.7) 01/24/19 05:02 ESR 3 mm/Hr (0-20) 01/24/19 05:02 PT 13.5 Sec. (12.2-14.9) 01/23/19 09:00 INR 0.97 (0.87-1.13) 01/23/19 09:00 APTT 24.7 Sec. (24.2-36.6) 01/23/19 09:00 Sodium 139 mmol/L (137-145) D 01/24/19 07:05 Potassium 3.9 mmol/L (3.6-5.0) 01/24/19 07:05 Chloride 105.1 mmol/L (98-107) 01/24/19 07:05 Carbon Dioxide 22 mmol/L (22-30) 01/24/19 07:05 Anion Gap 16 mmol/L 01/24/19 07:05 BUN 13 mg/dL (9-20) 01/24/19 07:05 Creatinine 0.9 mg/dL (0.8-1.5) 01/24/19 07:05 Estimated GFR > 60 ml/min 01/24/19 07:05 BUN/Creatinine Ratio 14 % 01/24/19 07:05 Glucose 200 mg/dL (75-100) H 01/24/19 07:05 POC Glucose 167 (70-105) H 01/25/19 11:43 Hemoglobin A1c 8.5 % (4-6) H 01/24/19 05:02 Calcium 9.1 mg/dL (8.4-10.2) D 01/24/19 07:05 Magnesium 1.90 mg/dL (1.7-2.3) 01/24/19 07:05 Total Bilirubin 0.70 mg/dL (0.1-1.2) 01/24/19 04:08 AST 41 units/L (5-40) H 01/24/19 04:08 ALT 48 units/L (7-56) 01/24/19 04:08 Alkaline Phosphatase 76 units/L (35-129) 01/24/19 04:08 Troponin T < 0.010 ng/mL (0.00-0.029) 01/23/19 09:00 Total Protein 5.3 g/dL (6.3-8.2) L 01/24/19 04:08 Albumin 1.8 g/dL (3.9-5) L 01/24/19 04:08 Albumin/Globulin Ratio 0.5 % 01/24/19 04:08 Triglycerides 97 mg/dL (2-149) 01/24/19 04:08 Cholesterol 85 mg/dL (50-199) 01/24/19 04:08 LDL Cholesterol Direct 45 mg/dL (50-130) L 01/24/19 04:08 HDL Cholesterol 20 mg/dL (40-59) L 01/24/19 04:08 Cholesterol/HDL Ratio 4.25 % 01/24/19 04:08 Urine Opiates Screen Presumptive negative 01/23/19 Unknown Urine Methadone Screen Presumptive negative 01/23/19 Unknown Ur Barbiturates Screen Presumptive negative 01/23/19 Unknown Ur Phencyclidine Scrn Presumptive negative 01/23/19 Unknown Ur Amphetamines Screen Presumptive negative 01/23/19 Unknown U Benzodiazepines Scrn Presumptive negative 01/23/19 Unknown Urine Cocaine Screen Presumptive negative 01/23/19 Unknown U Marijuana (THC) Screen Presumptive positive 01/23/19 Unknown Drugs of Abuse Note Disclamer 01/23/19 Unknown Plasma/Serum Alcohol < 0.01 % (0-0.07) 01/23/19 09:00 Active Medications - Current Medications Current Medications: Generic Name Dose Route Start Last Admin Trade Name Freq PRN Reason Stop Dose Admin Acetaminophen 650 mg 01/23/19 22:13 01/25/19 05:12 Tylenol PO 650 mg Q6H PRN Administration Non Cardiac Pain or Temp>100.5 Acetaminophen/Hydrocodone Bitart 1 each 01/23/19 22:14 01/24/19 04:50 [place] 5/325 PO 1 each Q6H PRN Administration Pain, Moderate (4-6) Al Hydrox/Mg Hydrox/Simethicone 30 ml 01/23/19 21:46 01/23/19 21:56 Alum-Mag Hydrox-Simeth [id number]/5ml PO 30 ml Q4H PRN Administration Indigestion Atorvastatin Calcium 40 mg 01/23/19 22:00 01/24/19 21:30 Lipitor PO 40 mg QHS [facility] Administration Docusate Sodium 100 mg 01/23/19 19:15 Colace PO BID PRN Constipation Enoxaparin Sodium 40 mg 01/23/19 22:00 01/24/19 21:31 Lovenox SUB-Q 40 mg QDAY@2200 [facility] Administration Hydralazine HCl 10 mg 01/23/19 19:04 01/24/19 16:38 Apresoline IV 10 mg Q4HR PRN Administration Hypertension Hydralazine HCl 50 mg 01/24/19 18:25 01/25/19 05:10 Apresoline PO 50 mg Q8HR [facility] Administration Nicardipine HCl 50 mg/ Sodium 250 mls @ 25 mls/hr 01/23/19 10:00 01/23/19 19:01 Chloride IV 0 mg/hr TITR [facility] 0 mls/hr Titration Protocol 5 MG/HR Loratadine/Pseudoephedrine Sulfate 1 each 01/24/19 15:00 01/24/19 17:42 Claritin-D 24hr PO 1 each Q24HR [facility] Administration Metoprolol Tartrate 25 mg 01/23/19 22:00 01/25/19 10:35 Lopressor PO 25 mg BID [facility] Administration Nicardipine HCl 30 mg 01/25/19 14:00 Cardene PO Q8HR [facility] Ondansetron HCl 4 mg 01/23/19 19:15 01/24/19 07:00 Zofran IV 4 mg Q4H PRN Administration Nausea And Vomiting Pantoprazole Sodium 40 mg 01/24/19 10:00 01/25/19 10:35 Protonix PO 40 mg QDAY [facility] Administration Zolpidem Tartrate 5 mg 01/23/19 19:15 Ambien PO QHS PRN Sleep
[2019-01-25] MEDS: CARDENE PO SCH ×2 (15:34→22:57)
[2019-01-25] MEDS: APRESOLINE IV PRN (16:17)
[2019-01-25] MEDS ORDERED: XANAX PO PRN (17:13)
--- NOTE | 2019-01-25 17:22 | Event Note ---
Date: 01/25/19 Patient's blood pressures are uncontrolled Plan increase hydralazine to 75 mg 3 times a day, add clonidine When necessary medications, closely monitor If no improvement, consider Cardene drip Plan of care is reviewed with the nurse
[2019-01-25] MEDS: CATAPRES PO SCH ×2 (17:43→22:50)
[2019-01-25] MEDS: XANAX PO ONE ×2 (18:28→18:41)
[2019-01-25] MEDS: LOVENOX SUB-Q SCH (22:56)
[2019-01-26] MEDS: APRESOLINE PO SCH ×3 (05:30→21:21)
[2019-01-26] MEDS: CARDENE PO SCH ×3 (05:30→21:24)
[2019-01-26] MEDS: CATAPRES PO SCH ×3 (05:30→21:31)
[2019-01-26] MEDS: TYLENOL PO PRN (05:30)
--- NOTE | 2019-01-26 08:46 | Progress Note ---
Subjective Date of service: 01/26/19 Interval history: spoke to Sylvia Pinto last evening and presently BP is really under good control and glucoses are acceptable exam shows he is fully alert and moves all limbs well not dizzy and not having hiccups do not believe he is unstable and the CT of brain shows no deterioration ie severe edema or evidence of bleeding since this is [place] distribution infarct not likely to cause malignant brain edema... suspect some of his feeling of loss of energy is from aBP pill combo once BP stable I would cut back slightly on some of BP meds... explained evaluation to patient he is neuro stable did review all imaging studies and I will follow up Thanks Objective - Vital Sign Vital Signs - 12hr 01/25/19 01/26/19 01/26/19 23:51 04:00 04:11 Temperature 98.0 F 97.0 F L Pulse Rate 94 H 81 Respiratory 18 18 Rate Blood Pressure 171/99 146/94 O2 Sat by Pulse 96 Oximetry - Laboratory Findings CBC and BMP: 01/24/19 05:02 01/24/19 07:05 Abnormal Lab Findings: Abnormal Labs 01/23/19 01/23/19 01/24/19 09:00 09:00 04:08 RBC 5.19 H Hgb 15.5 H MCHC 35 H RDW Lymph % (Auto) Rich % (Auto) 10.6 H Sodium 132 L Carbon Dioxide 21 L D Glucose 238 H POC Glucose Hemoglobin A1c Calcium 7.1 L D AST 41 H Total Protein 5.3 L Albumin 1.8 L LDL Cholesterol Direct 45 L HDL Cholesterol 20 L 01/24/19 01/24/19 01/24/19 05:02 05:02 06:56 RBC 5.28 H Hgb 15.6 H MCHC 35 H RDW 13.1 L Lymph % (Auto) 38.7 H Rich % (Auto) 11.8 H Sodium Carbon Dioxide Glucose POC Glucose 164 H Hemoglobin A1c 8.5 H Calcium AST Total Protein Albumin LDL Cholesterol Direct HDL Cholesterol 01/24/19 01/24/19 01/24/19 07:05 18:22 21:39 RBC Hgb MCHC RDW Lymph % (Auto) Rich % (Auto) Sodium Carbon Dioxide Glucose 200 H POC Glucose 134 H 151 H Hemoglobin A1c Calcium AST Total Protein Albumin LDL Cholesterol Direct HDL Cholesterol 01/25/19 01/25/19 01/25/19 09:14 11:43 16:59 RBC Hgb MCHC RDW Lymph % (Auto) Rich % (Auto) Sodium Carbon Dioxide Glucose POC Glucose 193 H 167 H 183 H Hemoglobin A1c Calcium AST Total Protein Albumin LDL Cholesterol Direct HDL Cholesterol 01/25/19 22:42 RBC Hgb MCHC RDW Lymph % (Auto) Rich % (Auto) Sodium Carbon Dioxide Glucose POC Glucose 150 H Hemoglobin A1c Calcium AST Total Protein Albumin LDL Cholesterol Direct HDL Cholesterol
[2019-01-26] MEDS: PROTONIX PO SCH (09:50)
[2019-01-26] MEDS: LOPRESSOR PO SCH ×2 (09:50→21:19)
[2019-01-26] MEDS: CLARITIN-D 24HR PO SCH (09:51)
--- NOTE | 2019-01-26 11:29 | Progress Note ---
Assessment and Plan Assessment and plan: --Hypertensive emergency; moderate control s/p Cardene drip, multiple antihypertensives, when necessary hydralazine Hydralazine, metoprolol, lisinopril, nicardipine, clonidine --Acute cerebellar stroke; on MRI Aspirin, statin, physical therapy occupational therapy Neurology following, [neurologist] recommend Follow-up CT today no cerebral edema Repeat CT head if new symptoms are noted --Hypertensive encephalopathy; Supportive care,Optimal control of blood pressures, fall precautions, --Acute cerebral artery infarct; Not a candidate for TPA, as patient had symptoms more than 5 days Follow neuro w/u CT angiogram of the head; no acute abnormality CTA neck; no acute abnormality CT head; chronic lacunar infarcts in [place] Low attenuation left possible and may be chronic infarct or mass MRI; left cerebellar acute infarctions noted in this patient with microvascular changes and few other findings as mentioned in the detailed report MRA;MRA; normal study of [place] with few incidental findings mentioned in the detailed report Echocardiogram; ejection fraction 35-40%, No shunt, impaired diastolic filling Carotid Doppler; no hemodynamically significant stenosis mild atherosclerotic plaque in the cardiac bifurcations Follow-up CT head; ; Approximately 3.3 cm 2.9 cm focal lucency in the left inferior cerebellum keeping with an acute or subacute infarction Severe atherosclerotic disease distal vertebral arteries level of skull base, marked calcified mural plaques No intracranial hemorrhage mass lesion midline shift mass effect on hydrocortisone as well as seen -Hyperglycemia; patient denies history of diabetes mellitus, HbA1c > 8 Accu-Chek sliding scale coverage and ADA diet, start oral hypoglycemics/insulin as needed Diabetic Education and nutrition consult, --Severe malnutrition /Hypoalbuminemia ; nutrition supplements, nutrition consult --Medical noncompliance; counseling done patient advised to comply with medications, Follow-up visits --DVT prophylaxis; Lovenox Follow physical therapy recommendations Possible discharge in 1-2 days if stable Home with home health versus rehabilitation History Interval history: Patient seen and evaluated medical records reviewed Patient feels better complaints of generalized weakness and dizziness Blood pressures are reasonable levels, on multiple antihypertensives Awake oriented 3 not in acute distress Vital signs noted Hospitalist Physical - Constitutional Vitals: Temp Pulse Resp BP Pulse Ox 97.0 F L 85 18 139/75 96 01/26/19 04:11 01/26/19 09:50 01/26/19 04:11 01/26/19 09:50 01/25/19 23:51 General appearance: Present: no acute distress, well-nourished - EENT Eyes: Present: PERRL, EOM intact - Neck Neck: Present: supple, normal ROM - Respiratory Respiratory effort: normal Respiratory: bilateral: diminished, negative: rales, rhonchi, wheezing - Cardiovascular Rhythm: regular Heart Sounds: Present: S1 & S2 - Extremities Extremities: no ischemia, pulses intact, No edema - Abdominal General gastrointestinal: soft, non-tender, non-distended, normal bowel sounds - Integumentary Integumentary: Present: clear, warm - Psychiatric Psychiatric: appropriate mood/affect, cooperative - Neurologic Neurologic: CNII-XII intact, moves all extremities Results - Labs CBC & Chem 7: 01/24/19 05:02 01/24/19 07:05 Labs: Laboratory Last Values WBC 6.1 K/mm3 (4.5-11.0) 01/24/19 05:02 RBC 5.28 M/mm3 (3.65-5.03) H 01/24/19 05:02 Hgb 15.6 gm/dl (11.8-15.2) H 01/24/19 05:02 Hct 45.0 % (35.5-45.6) 01/24/19 05:02 MCV 85 fl (84-94) 01/24/19 05:02 MCH 30 pg (28-32) 01/24/19 05:02 MCHC 35 % (32-34) H 01/24/19 05:02 RDW 13.1 % (13.2-15.2) L 01/24/19 05:02 Plt Count 244 K/mm3 (140-440) 01/24/19 05:02 Lymph % (Auto) 38.7 % (13.4-35.0) H 01/24/19 05:02 Cherry % (Auto) 11.8 % (0.0-7.3) H 01/24/19 05:02 Eos % (Auto) 1.3 % (0.0-4.3) 01/24/19 05:02 Baso % (Auto) 1.5 % (0.0-1.8) 01/24/19 05:02 Lymph # 2.4 K/mm3 (1.2-5.4) 01/24/19 05:02 Cherry # 0.7 K/mm3 (0.0-0.8) 01/24/19 05:02 Eos # 0.1 K/mm3 (0.0-0.4) 01/24/19 05:02 Baso # 0.1 K/mm3 (0.0-0.1) 01/24/19 05:02 Seg Neutrophils % 46.7 % (40.0-70.0) 01/24/19 05:02 Seg Neutrophils # 2.9 K/mm3 (1.8-7.7) 01/24/19 05:02 ESR 3 mm/Hr (0-20) 01/24/19 05:02 PT 13.5 Sec. (12.2-14.9) 01/23/19 09:00 INR 0.97 (0.87-1.13) 01/23/19 09:00 APTT 24.7 Sec. (24.2-36.6) 01/23/19 09:00 Sodium 139 mmol/L (137-145) D 01/24/19 07:05 Potassium 3.9 mmol/L (3.6-5.0) 01/24/19 07:05 Chloride 105.1 mmol/L (98-107) 01/24/19 07:05 Carbon Dioxide 22 mmol/L (22-30) 01/24/19 07:05 Anion Gap 16 mmol/L 01/24/19 07:05 BUN 13 mg/dL (9-20) 01/24/19 07:05 Creatinine 0.9 mg/dL (0.8-1.5) 01/24/19 07:05 Estimated GFR > 60 ml/min 01/24/19 07:05 BUN/Creatinine Ratio 14 % 01/24/19 07:05 Glucose 200 mg/dL (75-100) H 01/24/19 07:05 POC Glucose 203 (70-105) H 01/26/19 11:11 Hemoglobin A1c 8.5 % (4-6) H 01/24/19 05:02 Calcium 9.1 mg/dL (8.4-10.2) D 01/24/19 07:05 Magnesium 1.90 mg/dL (1.7-2.3) 01/24/19 07:05 Total Bilirubin 0.70 mg/dL (0.1-1.2) 01/24/19 04:08 AST 41 units/L (5-40) H 01/24/19 04:08 ALT 48 units/L (7-56) 01/24/19 04:08 Alkaline Phosphatase 76 units/L (35-129) 01/24/19 04:08 Troponin T < 0.010 ng/mL (0.00-0.029) 01/23/19 09:00 Total Protein 5.3 g/dL (6.3-8.2) L 01/24/19 04:08 Albumin 1.8 g/dL (3.9-5) L 01/24/19 04:08 Albumin/Globulin Ratio 0.5 % 01/24/19 04:08 Triglycerides 97 mg/dL (2-149) 01/24/19 04:08 Cholesterol 85 mg/dL (50-199) 01/24/19 04:08 LDL Cholesterol Direct 45 mg/dL (50-130) L 01/24/19 04:08 HDL Cholesterol 20 mg/dL (40-59) L 01/24/19 04:08 Cholesterol/HDL Ratio 4.25 % 01/24/19 04:08 Urine Opiates Screen Presumptive negative 01/23/19 Unknown Urine Methadone Screen Presumptive negative 01/23/19 Unknown Ur Barbiturates Screen Presumptive negative 01/23/19 Unknown Ur Phencyclidine Scrn Presumptive negative 01/23/19 Unknown Ur Amphetamines Screen Presumptive negative 01/23/19 Unknown U Benzodiazepines Scrn Presumptive negative 01/23/19 Unknown Urine Cocaine Screen Presumptive negative 01/23/19 Unknown U Marijuana (THC) Screen Presumptive positive 01/23/19 Unknown Drugs of Abuse Note Disclamer 01/23/19 Unknown Plasma/Serum Alcohol < 0.01 % (0-0.07) 01/23/19 09:00 Active Medications - Current Medications Current Medications: Generic Name Dose Route Start Last Admin Trade Name Freq PRN Reason Stop Dose Admin Acetaminophen 650 mg 01/23/19 22:13 01/26/19 05:30 Tylenol PO 650 mg Q6H PRN Administration Non Cardiac Pain or Temp>100.5 Acetaminophen/Hydrocodone Bitart 1 each 01/23/19 22:14 01/24/19 04:50 [place] 5/325 PO 1 each Q6H PRN Administration Pain, Moderate (4-6) Al Hydrox/Mg Hydrox/Simethicone 30 ml 01/23/19 21:46 01/23/19 21:56 Alum-Mag Hydrox-Simeth 377-614-04lp/5ml PO 30 ml Q4H PRN Administration Indigestion Alprazolam 0.5 mg 01/25/19 17:13 Xanax PO Q8H PRN Anxiety Atorvastatin Calcium 40 mg 01/23/19 22:00 01/25/19 22:57 Lipitor PO 40 mg QHS CUCO Administration Clonidine HCl 0.1 mg 01/25/19 18:00 01/26/19 05:30 Catapres PO 0.1 mg Q8HR CUCO Administration Docusate Sodium 100 mg 01/23/19 19:15 Colace PO BID PRN Constipation Enoxaparin Sodium 40 mg 01/23/19 22:00 01/25/19 22:56 Lovenox SUB-Q 40 mg QDAY@2200 CUCO Administration Hydralazine HCl 10 mg 01/23/19 19:04 01/25/19 16:17 Apresoline IV 10 mg Q4HR PRN Administration Hypertension Hydralazine HCl 75 mg 01/25/19 18:18 01/26/19 05:30 Apresoline PO 75 mg Q8HR CUCO Administration Nicardipine HCl 50 mg/ Sodium 250 mls @ 25 mls/hr 01/23/19 10:00 01/23/19 19:01 Chloride IV 01/26/19 23:00 0 mg/hr TITR CUCO 0 mls/hr Titration Protocol 5 MG/HR Loratadine/Pseudoephedrine Sulfate 1 each 01/24/19 15:00 01/26/19 09:51 Claritin-D 24hr PO 1 each Q24HR CUCO Administration Metoprolol Tartrate 25 mg 01/23/19 22:00 01/26/19 09:50 Lopressor PO 25 mg BID CUCO Administration Nicardipine HCl 30 mg 01/25/19 15:00 01/26/19 05:30 Cardene PO 30 mg Q8HR CUOC Administration Ondansetron HCl 4 mg 01/23/19 19:15 01/24/19 07:00 Zofran IV 4 mg Q4H PRN Administration Nausea And Vomiting Pantoprazole Sodium 40 mg 01/24/19 10:00 01/26/19 09:50 Protonix PO 40 mg QDAY CUCO Administration Zolpidem Tartrate 5 mg 01/23/19 19:15 Ambien PO QHS PRN Sleep
[2019-01-26] MEDS: GLUCOTROL PO SCH (21:21)
[2019-01-26] MEDS: NORCO 5/325 PO PRN (21:21)
[2019-01-26] MEDS: LOVENOX SUB-Q SCH (21:22)
[2019-01-27] MEDS: CARDENE PO SCH ×2 (05:11→15:03)
[2019-01-27] MEDS: CATAPRES PO SCH ×2 (05:11→15:03)
[2019-01-27] MEDS: APRESOLINE PO SCH ×2 (05:11→15:04)
[2019-01-27] MEDS: TYLENOL PO PRN (05:12)
[2019-01-27] MEDS ORDERED: GLUCOTROL PO SCH (08:00)
--- NOTE | 2019-01-27 08:53 | Consultation ---
HISTORY OF PRESENT ILLNESS: A 44-year-old black male admitted to [facility] on 01/23/2019. This patient was initially admitted and workup was initially done because the patient presented with a history of being extremely dizzy. He was apparently hypertensive, has been noncompliant. He presented himself to the hospital with a history of dizziness. He had a blood pressure initially at 215/137. Subsequent blood pressure was controlled at 197/123. Initial hematocrit was 44.8 and the patient's potassium is 3.8, glucose was 238. The patient was subsequently admitted and that same day, had a CT scan of the head, which showed evidence of inferior cerebellar infarct. There is a hypoplastic a one segment noted on the CTA, but otherwise no intracranial abnormalities were present on CTA of the brain. Subsequent MRI scan showed features are predominantly of an ischemic infarct in the left posterior inferior cerebellar artery territory, does not appear to involve the lateral medullary plate, is specific for changes present within the posterior inferior cerebral artery. The [place] was normal on the MRA of the brain. There is no flow limiting stenosis. No other abnormalities are present on the MRA of the brain. I did review over the MRA completely and good visualization seen in the vertebrals, the junction of the vertebrals and the basilar and the sequence noted the branches of the anterior inferior cerebellar artery, posterior inferior cerebral arteries are not well visualized on the sequences, but there is adequate flow in both vertebrals. IMPRESSION: This patient does have a posterior inferior cerebral artery type infarct, it predominantly involving the left inferior cerebellar hemisphere which these infarcts are typically quite benign and they are coarse. He does not have any findings at all of the Wallenberg syndrome such as hiccups, ptosis, sensory loss or gaze problem. 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 I suspect some of his symptoms he is currently complaining of are related to his resumption of blood pressure control medications and this may explain his general feelings of fatigue as well as blood sugar issues. Most recent set of vital signs shows blood pressure is 146/94 and he may be simply being affected by the clonidine and hydralazine combination as these sometimes have associated symptoms of generalized weakness. I certainly found out findings that would indicate that he is developing cerebellar edema such as alteration in consciousness, nausea, vomiting, hiccups, focal weakness, loss of responsivity. He moves all limbs well, does not have any focal ataxia and he is not complaining of dizziness at present, just a general sense of feeling tired and lack of energy. I did mention to the patient we may need to adjust some of his blood pressure medications as oftentimes on resuming in a hypertensive people develop similar symptoms. JOB# [id number] DEJUAN/NTS
[2019-01-27] MEDS: PROTONIX PO SCH (10:04)
[2019-01-27] MEDS: GLUCOTROL PO SCH (10:05)
[2019-01-27] MEDS: LOPRESSOR PO SCH (10:05)
[2019-01-27] MEDS: CLARITIN-D 24HR PO SCH (10:20)
--- NOTE | 2019-01-27 13:59 | Discharge Summary ---
Providers - Providers Date of Admission: 01/23/19 19:24 Date of discharge: 01/27/19 Attending physician: AMNA SAL 01/23/19 19:10 Consult to Physician [CONS] Routine Comment: Consulting Provider: LUDWIN THAYER Physician Instructions: Reason For Exam: CVA/TIA 01/23/19 19:13 Occupational Therapy Evaluate and Treat [CONS] Routine Comment: Reason For Exam: CVA/TIA ,unsteady gait Physical Therapy Evaluation and Treat [CONS] Routine Comment: Reason For Exam: CVA/TIA unsteady gait 01/25/19 18:01 Consult to Physician [CONS] Routine Comment: Consulting Provider: ROSALIA PEARCE Physician Instructions: Reason For Exam: Acute cerebellar stroke [facility] Reason for admission: Unsteady gait and neuro symptoms Condition: Fair Pertinent studies: CT angiogram of the head; no acute abnormality CTA neck; no acute abnormality CT head; chronic lacunar infarcts in [place] Low attenuation left possible and may be chronic infarct or mass MRI; left cerebellar acute infarctions noted in this patient with microvascular changes and few other findings as mentioned in the detailed report MRA;MRA; normal study of [place] with few incidental findings mentioned in the detailed report Echocardiogram; ejection fraction 35-40%, No shunt, impaired diastolic filling Carotid Doppler; no hemodynamically significant stenosis mild atherosclerotic plaque in the cardiac bifurcations Follow-up CT head; ; Approximately 3.3 cm 2.9 cm focal lucency in the left inferior cerebellum keeping with an acute or subacute infarction Severe atherosclerotic disease distal vertebral arteries level of skull base, marked calcified mural plaques No intracranial hemorrhage ,no mass lesion, no midline shift ,no mass effect or no hydrocephalus seen Hospital course: Very pleasant 44-year-old -[place] male patient with significant past medical history of hypertension noncompliant with medications was admitted through ER with dizziness unsteady gait vague neuro symptoms for the last 5 days Not a candidate for TPA. Symptomatically managed,had extensive neuro workup,Started on aspirin and statin Received PT,OT and case management set up [facility].Evaluated by neurologist. Today patient is comfortable,no new complaints, vital signs stable,Discharge home with [facility]. Discharge Diagnosis: --Hypertensive emergency; moderate control s/p Cardene drip, multiple antihypertensives, when necessary hydralazine Hydralazine, metoprolol, lisinopril, nicardipine, clonidine --Acute cerebellar stroke; on MRI Aspirin, statin, physical therapy occupational therapy Neurology following, [neurologist] recommend Follow-up CT today no cerebral edema Repeat CT head if new symptoms are noted --Hypertensive encephalopathy; Supportive care,Optimal control of blood pressures, fall precautions, --Acute cerebral artery infarct; Not a candidate for TPA, as patient had symptoms more than 5 days Follow neuro w/u -Hyperglycemia; patient denies history of diabetes mellitus, HbA1c > 8 Accu-Chek sliding scale coverage and ADA diet, start oral hypoglycemics/insulin as needed Diabetic Education and nutrition consult, --Severe malnutrition /Hypoalbuminemia ; nutrition supplements, nutrition consult --Medical noncompliance; counseling done patient advised to comply with medications, Follow-up visits --DVT prophylaxis; Lovenox Stable at discharge. Disposition: DC-01 TO HOME OR SELFCARE Time spent for discharge: 35 min Core Measure Documentation - Palliative Care Palliative Care/ Comfort Measures: Not Applicable - Core Measures Any of the following diagnoses?: stroke - Stroke Discharge Requirements Statin for LDL = or >70 mg/dl on DC: No Anticoag for atrial fib/atrial flutter: Not Applicable (no A. fib or flutter) Antithrombotic for ischemic stroke: Yes Exam - Constitutional Vitals: Temp Pulse Resp BP Pulse Ox 98.2 F 78 18 146/103 99 01/27/19 11:53 01/27/19 11:53 01/27/19 11:53 01/27/19 11:53 01/27/19 08:00 General appearance: Present: no acute distress, well-nourished - EENT Eyes: Present: PERRL, EOM intact - Neck Neck: Present: supple, normal ROM - Respiratory Respiratory effort: normal Respiratory: negative: rales, rhonchi, wheezing - Cardiovascular Rhythm: regular Heart Sounds: Present: S1 & S2 - Extremities Extremities: no ischemia, No edema - Abdominal General gastrointestinal: Present: soft, non-tender, non-distended, normal bowel sounds - Integumentary Integumentary: Present: clear, warm - Musculoskeletal Musculoskeletal: strength equal bilaterally - Psychiatric Psychiatric: appropriate mood/affect, cooperative - Neurologic Neurologic: moves all extremities, gait normal Plan Activity: advance as tolerated, fall precautions Diet: diabetic Special Instructions: smoking cessation Additional Instructions: Fall precautions. Advised to see private neurologist in 3-4 days. Smoking cessation. Advised 5 days work excuse, 01/28/19-02/01/19. Check with primary care physician/neurologist for. further work excuse recommendations. Follow up with: ROXY TERAN MD [Primary Care Provider] - 7 Days DA GUTIERREZ MD [Staff Physician] - 7 Days Forms: Work/School Release Form Prescriptions: hydrALAZINE [Apresoline TAB] 75 mg PO Q8HR #90 tablet Aspirin [Aspirin TAB] 325 mg PO QDAY #30 tablet cloNIDine [Catapres] 0.1 mg PO Q8HR #90 tablet Docusate Sodium [Colace ORAL LIQ] 100 mg PO BID PRN #30 oral.liqd PRN Reason: Constipation glipiZIDE [Glucotrol] 5 mg PO BID #60 tablet AtorvaSTATin [Lipitor] 40 mg PO QHS #30 tablet Metoprolol [Lopressor TAB] 25 mg PO BID #60 tablet Amoxicillin [Trimox CAP] 500 mg PO Q8H #15 capsule
[2019-01-27] MEDS ORDERED: ASPIRIN PO SCH (15:00)
[2019-01-27 15:03] VITALS: BP 143/92
--- NOTE | 2019-01-27 15:57 | Progress Note ---
Subjective Date of service: 01/27/19 Interval history: very execellent control of BP on current meds which will facilitate recovery from stroke current meds effective Objective - Vital Sign Vital Signs - 12hr 01/27/19 01/27/19 01/27/19 04:00 05:11 08:00 Temperature Pulse Rate 72 67 Pulse Rate [ 88 Apical] Pulse Rate [ 88 Left Radial] Pulse Rate [ 88 Right Radial] Respiratory 19 Rate Blood Pressure 139/80 Blood Pressure [Right] O2 Sat by Pulse 99 Oximetry 01/27/19 01/27/19 01/27/19 10:05 11:53 15:03 Temperature 98.2 F Pulse Rate 92 H 78 97 H Pulse Rate [ Apical] Pulse Rate [ Left Radial] Pulse Rate [ Right Radial] Respiratory 18 Rate Blood Pressure 121/87 143/92 Blood Pressure 146/103 [Right] O2 Sat by Pulse Oximetry 01/27/19 15:04 Temperature Pulse Rate 97 H Pulse Rate [ Apical] Pulse Rate [ Left Radial] Pulse Rate [ Right Radial] Respiratory Rate Blood Pressure 143/92 Blood Pressure [Right] O2 Sat by Pulse Oximetry - Laboratory Findings CBC and BMP: 01/24/19 05:02 01/24/19 07:05 Abnormal Lab Findings: Abnormal Labs 01/23/19 01/23/19 01/24/19 09:00 09:00 04:08 RBC 5.19 H Hgb 15.5 H MCHC 35 H RDW Lymph % (Auto) [place]ye % (Auto) 10.6 H Sodium 132 L Carbon Dioxide 21 L D Glucose 238 H POC Glucose Hemoglobin A1c Calcium 7.1 L D AST 41 H Total Protein 5.3 L Albumin 1.8 L LDL Cholesterol Direct 45 L HDL Cholesterol 20 L 01/24/19 01/24/19 01/24/19 05:02 05:02 06:56 RBC 5.28 H Hgb 15.6 H MCHC 35 H RDW 13.1 L Lymph % (Auto) 38.7 H Nye % (Auto) 11.8 H Sodium Carbon Dioxide Glucose POC Glucose 164 H Hemoglobin A1c 8.5 H Calcium AST Total Protein Albumin LDL Cholesterol Direct HDL Cholesterol 01/24/19 01/24/19 01/24/19 07:05 18:22 21:39 RBC Hgb MCHC RDW Lymph % (Auto) [place]ye % (Auto) Sodium Carbon Dioxide Glucose 200 H POC Glucose 134 H 151 H Hemoglobin A1c Calcium AST Total Protein Albumin LDL Cholesterol Direct HDL Cholesterol 01/25/19 01/25/19 01/25/19 09:14 11:43 16:59 RBC Hgb MCHC RDW Lymph % (Auto) [place]ye % (Auto) Sodium Carbon Dioxide Glucose POC Glucose 193 H 167 H 183 H Hemoglobin A1c Calcium AST Total Protein Albumin LDL Cholesterol Direct HDL Cholesterol 01/25/19 01/26/19 01/26/19 22:42 08:25 11:11 RBC Hgb MCHC RDW Lymph % (Auto) [place] % (Auto) Sodium Carbon Dioxide Glucose POC Glucose 150 H 191 H 203 H Hemoglobin A1c Calcium AST Total Protein Albumin LDL Cholesterol Direct HDL Cholesterol 01/26/19 01/26/19 01/27/19 15:58 20:41 07:48 RBC Hgb MCHC RDW Lymph % (Auto) [place] % (Auto) Sodium Carbon Dioxide Glucose POC Glucose 208 H 200 H 127 H Hemoglobin A1c Calcium AST Total Protein Albumin LDL Cholesterol Direct HDL Cholesterol 01/27/19 12:16 RBC Hgb MCHC RDW Lymph % (Auto) [place] % (Auto) Sodium Carbon Dioxide Glucose POC Glucose 252 H Hemoglobin A1c Calcium AST Total Protein Albumin LDL Cholesterol Direct HDL Cholesterol
== END 2019-01-27 16:46 | disposition home or self-care (01) | DRG 64 ==
LOC: ED 08:11 → 4A 19:24
PROVIDERS: ADMIT Internal Medicine; ATTEND Internal Medicine
DX: I63.9 Cerebral infarction, unspecified (principal); E43 Unspecified severe protein-calorie malnutrition; I16.1 Hypertensive emergency; I67.4 Hypertensive encephalopathy; I10 Essential (primary) hypertension; R26.81 Unsteadiness on feet; F17.200 Nicotine dependence, unspecified, uncomplicated; R73.9 Hyperglycemia, unspecified; Z68.23 Body mass index [BMI] 23.0-23.9, adult; Z91.14 Patient's other noncompliance with medication regimen; Z71.89 Other specified counseling; Z82.49 Family history of ischemic heart disease and other diseases of the circulatory system; Z72.89 Other problems related to lifestyle
CPT/HCPCS: 36415; 70450; 70496; 70498; 70544; 70551; 80048; 80053; 80061; 80307; 80320; 82962; 83036; 83735; 84484; 85025; 85610; 85652; 85730; 93005; 93010; 93306; 93880; 96374; 96375; 99291; 99406; G0378; A9270-GY; G0480; J0360; J1650; J1885; J2405; J7050; Q9967